=== PATIENT | male | born 1970 | race Caucasian/White ===

== ENCOUNTER 2017-06-17 16:54 | Emergency (ER) | payer OTHER ==
[2017-06-17 17:01] VITALS: BMI 26.4
[2017-06-17 17:05] VITALS: BP 143/87; PULSE 62; RESP 18; TEMP 97.6; O2SAT 100
[2017-06-17] MEDS ORDERED: Enoxaparin 40 mg Syringe SC STA (19:11)
[2017-06-17] MEDS ORDERED: Oxycodone/Acetaminophen 5/325 mg Tab PO STA (19:11)
[2017-06-17] MEDS ORDERED: Oxycodone/Acetaminophen 5/325 mg Tab ONE (19:24)
[2017-06-17] MEDS ORDERED: Enoxaparin 60 mg Syringe ONE (19:24)
--- NOTE | 2017-06-17 20:17 | C.PDOC ---
History Of Present Illness 46 year old male presents to the ED for evaluation of left leg pain which began 3 days ago. Patient denies trauma to the area, extremity numbness/weakness, or prior history of the same. Time Seen by Provider: 06/17/17 17:42 Chief Complaint (Nursing): Lower Extremity Problem/Injury History Per: Patient History/Exam Limitations: no limitations Onset/Duration Of Symptoms: Days (3) Current Symptoms Are (Timing): Still Present Additional History Per: Patient Past Medical History Reviewed: Historical Data, Nursing Documentation, Vital Signs Vital Signs: Last Vital Signs Temp 97.6 F 06/17/17 17:00 Pulse 62 06/17/17 17:00 Resp 18 06/17/17 17:00 BP 143/87 06/17/17 17:00 Pulse Ox 100 06/17/17 22:02 - Medical History PMH: Asthma, Fractures, Hypercholesterolemia Denies: Alzheimer's Disease, Anemia, Anxiety, Arthritis, Atrial Fibrillation , Bipolar Disorder, Cardia Arrhythmia, CHF, Crohn's Disease, Dementia, Depression, Diverticulitis, Gastritis, Gall Bladder Disease, HIV, HTN, Hyperthyroidism, Hypothyroidism, Kidney Stones, Migraine, Mitral Valve Prolapse , Multiple Sclerosis, Osteoporosis, Pancreatitis, Paranoia, Parkinson's Disease , Peripheral Edema, Pneumonia, Post Traumatic Stress Disorder, Pulmonary Embolism, Chronic Kidney Disease, Rheumatoid Arthritis, Schizophrenia, Seizures , Sickle Cell Disease, Sexually Transmitted Disease, Sleep Apnea, TIA Surgical History: No Surg Hx Denies: Pacemaker Family History: States: Unknown Family Hx - Social History Hx Tobacco Use: No Hx Alcohol Use: Yes Hx Substance Use: No - Immunization History Hx Tetanus Toxoid Vaccination: No Hx Influenza Vaccination: No Hx Pneumococcal Vaccination: No Review Of Systems Musculoskeletal: Positive for: Leg Pain (left) Neurological: Negative for: Weakness, Numbness Physical Exam - Physical Exam Appears: Non-toxic, No Acute Distress Skin: Normal Color, Warm, Dry, No Ecchymosis Back: Normal Inspection, No Vertebral Tenderness, No Decreased ROM, No Paraspinal Tenderness Extremity: Normal ROM, Tenderness (along posterior aspect of entire left lower extremity), Calf Tenderness (left, posterior ), Capillary Refill (less than 2 seconds ), No Swelling, Other (mild tenderness to left buttock ) Neurological/Psych: Oriented x3, Normal Speech, Normal Cognition ED Course And Treatment O2 Sat by Pulse Oximetry: 100 (on RA) Pulse Ox Interpretation: Normal Progress Note: Patient's symtoms are indicative of sciatica vs DVT. LS Spine AP /LAT ordered. Results show anterolisthesis of L5-S1 area. Percocet PO administered. D-dimer ordered and found to be elevated. Lovenox SC administered. On reassessment, patient is resting comfortably, showing no signs of distress and reports an improvement in his symptoms. Patient is stable for discharge and is advised to return to the ED tomorrow to undergo Venous Duplex Study for further evaluation. Reassessment Condition: Improved Disposition - Disposition Disposition: HOME/ ROUTINE Disposition Time: 20:14 Condition: STABLE Additional Instructions: Please return to ED tomorrow morning to do Left lower extremity duplex to rule out DVT. Follow up with PMD within 2-3 days. Return to Ed if feel worse. Prescriptions: Lidocaine 5% [Lidoderm] 1 patch TP DAILY #30 patch Ibuprofen [Motrin Tab] 600 mg PO Q8 #30 tab Gabapentin [Neurontin] 300 mg PO QPM #20 cap diaZEpam [Valium] 2 mg PO TID #15 tab Instructions: Sciatica Exercises Forms: [employer] (Liberian) Print Language: VIETNAMESE - Clinical Impression Clinical Impression: Leg pain - PA / BRUSH HAND / Resident Statement MD/DO has reviewed & agrees with the documentation as recorded. - Scribe Statement The provider has reviewed the documentation as recorded by the Scribe (Ann Olson) All medical record entries made by the Scribe were at my direction and personally dictated by me. I have reviewed the chart and agree that the record accurately reflects my personal performance of the history, physical exam, medical decision making, and the department course for this patient. I have also personally directed, reviewed, and agree with the discharge instructions and disposition.
--- NOTE | 2017-06-18 08:47 | RAD ---
PROCEDURE: Radiographs of the Lumbar Spine. HISTORY: Left leg pain COMPARISON: No prior. FINDINGS: BONES: There is pars interarticularis defect at L5 with grade 1 anterior listhesis of L5 on S1. There is mild levocurvature in the lumbar spine. Vertebral height is normal. Bone mineralization is normal. There is no acute fracture DISC SPACES: There is degenerative disc disease at L5-S1 with reduced disc height and mild facet arthropathy. The remaining disc heights are maintained. OTHER FINDINGS: Both sacroiliac joints are normal. There are no pathologic soft tissue calcifications. IMPRESSION: Pars interarticularis defect at L5 with grade 1 anterior listhesis of L5 on S1.
== END 2017-06-17 20:26 | disposition home or self-care (01) ==
LOC: C.ER 16:54
DX: M79.662 Pain in left lower leg (principal)
CPT/HCPCS: 72100; 85378; 96372; 99283; J1650

== ENCOUNTER 2017-06-18 13:05 | Emergency (ER) | payer OTHER ==
[2017-06-18 13:05] VITALS: BMI 26.4
--- NOTE | 2017-06-18 13:47 | C.PDOC ---
History Of Present Illness 46 y/o M p/w L leg pain. Was here yesterday, told to come back today when doppler available. Denies fever, chest pain, dyspnea, trauma. Time Seen by Provider: 06/18/17 13:32 Chief Complaint (Nursing): Lower Extremity Problem/Injury Past Medical History Vital Signs: Last Vital Signs Temp 97.6 F 06/18/17 13:07 Pulse 65 06/18/17 13:07 Resp 20 06/18/17 13:07 BP 151/97 H 06/18/17 13:07 Pulse Ox 97 06/18/17 13:48 - Medical History PMH: Asthma, Fractures, Hypercholesterolemia Denies: Alzheimer's Disease, Anemia, Anxiety, Arthritis, Atrial Fibrillation , Bipolar Disorder, Cardia Arrhythmia, CHF, Crohn's Disease, Dementia, Depression, Diverticulitis, Gastritis, Gall Bladder Disease, HIV, HTN, Hyperthyroidism, Hypothyroidism, Kidney Stones, Migraine, Mitral Valve Prolapse , Multiple Sclerosis, Osteoporosis, Pancreatitis, Paranoia, Parkinson's Disease , Peripheral Edema, Pneumonia, Post Traumatic Stress Disorder, Pulmonary Embolism, Chronic Kidney Disease, Rheumatoid Arthritis, Schizophrenia, Seizures , Sickle Cell Disease, Sexually Transmitted Disease, Sleep Apnea, TIA Surgical History: Denies: Pacemaker Family History: States: Unknown Family Hx - Social History Hx Tobacco Use: No Hx Alcohol Use: Yes Hx Substance Use: No - Immunization History Hx Tetanus Toxoid Vaccination: No Hx Influenza Vaccination: Yes (03/2017) Hx Pneumococcal Vaccination: Yes (2015) Review Of Systems Except As Marked, All Systems Reviewed And Found Negative. Constitutional: Negative for: Fever Cardiovascular: Negative for: Chest Pain, Palpitations Respiratory: Negative for: Shortness of Breath Physical Exam - Physical Exam Additional Physical Exam Comments: Gen: NAD Head: NC Resp: CTA b/l. No tachypnea. Extremities: FROM x 4. No edema. No tenderness Neuro: Alert, no focal deficit ED Course And Treatment O2 Sat by Pulse Oximetry: 97 Medical Decision Making Medical Decision Making: Doppler negative for DVT. Discharged home, f/u PMD, return to ED for worsening pain, swelling, dyspnea, or any other problem. Disposition - Disposition Referrals: [facility] at [facility] [Outside] Disposition: HOME/ ROUTINE Disposition Time: 15:34 Condition: STABLE Instructions: Sciatica Forms: [employer] (Sami) - Clinical Impression Clinical Impression: Leg pain
[2017-06-18 15:43] VITALS: BP 130/87; PULSE 64; RESP 18; TEMP 98; O2SAT 96
--- NOTE | 2017-06-21 12:46 | VASCLAB ---
PROCEDURE: Left Lower Extremity Venous Duplex Exam. HISTORY: L leg swelling PRIORS: None. TECHNIQUE: Left common femoral, femoral, popliteal and posterior tibial, peroneal and great saphenous veins were evaluated. Flow was assessed with color Doppler, compressibility, assessment of phasic flow and augmentation response. Report prepared by [facility] Clemons, RVT FINDINGS: LEFT: 1. Common Femoral Vein: 1.1. Compressibility - Fully compressible: Thrombus - None : Flow - Phasic: Augmentation -Normal: Reflux - None. 2. Femoral Vein: 2.1. Compressibility - Fully compressible: Thrombus - None: Flow - Phasic: Augmentation -Normal: Reflux - None. 3. Popliteal Vein: 3.1. Compressibility - Fully compressible: Thrombus - None: Flow - Phasic: Augmentation -Normal: Reflux - None. 4. Posterior Tibial Vein: 4.1. Compressibility - Fully compressible: Thrombus - None: Flow - Phasic: Augmentation -Normal: Reflux - None. 5. Peroneal Vein: 5.1. Compressibility - Fully compressible: Thrombus - None: Flow - Phasic: Augmentation -Normal: Reflux - None. 6. Great Saphenous Vein: 6.1. Compressibility - Fully compressible: Thrombus - None: Flow - Phasic: Augmentation - Normal: Reflux - None. OTHER FINDINGS: IMPRESSION: No evidence of deep or superficial vein thrombosis of the left lower extremity with excellent venous flow. Normal valve function noted of the left side. Normal venous flow noted in the right common femoral vein.
== END 2017-06-18 15:57 | disposition home or self-care (01) ==
LOC: C.ER 13:05
DX: M79.605 Pain in left leg (principal); E78.00 Pure hypercholesterolemia, unspecified

== ENCOUNTER 2018-05-05 10:02 | Outpatient (CLI) | payer OTHER | END 2018-05-05 10:03 | disposition home or self-care (01) | LOC: C.RT 10:02 | DX: J45.909 Unspecified asthma, uncomplicated (principal) ==

== ENCOUNTER 2018-06-06 11:37 | Emergency (ER) | payer OTHER ==
[2018-06-06 11:37] VITALS: BMI 30.4
[2018-06-06 12:03] VITALS: RESP 16; O2SAT 98
--- NOTE | 2018-06-06 12:08 | C.PDOC ---
History Of Present Illness 47 y/o male presents to the ED complaining of a dry cough, worsening for 1 week. Associated with a sore throat, subjective fever, and chills. Patient also reports having chest pain with coughing. No other complaints. Time Seen by Provider: 06/06/18 11:56 Chief Complaint (Nursing): Cough, Cold, Congestion History Per: Patient History/Exam Limitations: no limitations Onset/Duration Of Symptoms: Days Current Symptoms Are (Timing): Still Present Associated Symptoms: Fever, Chills, Cough Past Medical History Reviewed: Historical Data, Nursing Documentation, Vital Signs Vital Signs: Last Vital Signs Temp 98.1 F 06/06/18 11:50 Pulse 70 06/06/18 11:50 Resp 16 06/06/18 11:50 BP 118/73 06/06/18 11:50 Pulse Ox 98 06/06/18 11:50 - Medical History PMH: Asthma, Fractures, Hypercholesterolemia Denies: Alzheimer's Disease, Anemia, Anxiety, Arthritis, Atrial Fibrillation, Bipolar Disorder, Cardia Arrhythmia, CHF, Crohn's Disease, Dementia, Depression, Diverticulitis, Gastritis, Gall Bladder Disease, HIV, HTN, Hyperthyroidism, Hypothyroidism, Kidney Stones, Migraine, Mitral Valve Prolapse, Multiple Sclerosis, Osteoporosis, Pancreatitis, Paranoia, Parkinson's Disease, Peripheral Edema, Pneumonia, Post Traumatic Stress Disorder, Pulmonary Embolism, Chronic Kidney Disease, Rheumatoid Arthritis, Schizophrenia, Seizures, Sickle Cell Disease, Sexually Transmitted Disease, Sleep Apnea, TIA Surgical History: Denies: Pacemaker Family History: States: Unknown Family Hx - Social History Hx Tobacco Use: No Hx Alcohol Use: Yes Hx Substance Use: No - Immunization History Hx Tetanus Toxoid Vaccination: No Hx Influenza Vaccination: Yes (03/2017) Hx Pneumococcal Vaccination: Yes (2015) Review Of Systems Constitutional: Positive for: Fever (subjective), Chills ENT: Positive for: Nose Congestion, Throat Pain Cardiovascular: Positive for: Chest Pain (when coughing) Respiratory: Positive for: Cough. Negative for: Shortness of Breath Gastrointestinal: Negative for: Nausea, Vomiting, Diarrhea Skin: Negative for: Rash Neurological: Negative for: Weakness, Dizziness Physical Exam - Physical Exam Appears: Non-toxic, No Acute Distress Skin: Normal Color, Warm, Dry Head: Atraumatic, Normacephalic Eye(s): bilateral: Normal Inspection, PERRL, EOMI Ear(s): Bilateral: Normal (TMs clear) Oral Mucosa: Moist Throat: Erythema (Mild pharyngeal erythema), No Exudate Neck: Normal ROM Chest: Symmetrical Cardiovascular: Rhythm Regular, No Murmur Respiratory: Normal Breath Sounds, No Rales, No Rhonchi, No Wheezing Extremity: Bilateral: Atraumatic, Normal ROM Neurological/Psych: Oriented x3, Normal Speech ED Course And Treatment ECG: Interpreted By Me, Viewed By Me ECG Rhythm: Sinus Rhythm Interpretation Of ECG: No ST or T wave changes Rate From EC O2 Sat by Pulse Oximetry: 98 (RA) Pulse Ox Interpretation: Normal Medical Decision Making Medical Decision Making: Impression: Cough, Sore throat Initial Plan: - Chest x-ray - Flu swab - Rapid strep test strep flu cxr neg. pt lungs cta. will tx with tamiflu given high flu season. pt in nad iner. Disposition - Disposition Disposition: HOME/ ROUTINE Disposition Time: 13:00 Condition: STABLE Additional Instructions: return to er with worsening symptoms or concerns. Prescriptions: Oseltamivir Phosphate [Tamiflu] 75 mg PO BID #10 capsule Instructions: Viral Syndrome (DC) Forms: [employer] (Maori) - Clinical Impression Clinical Impression: Influenza-like illness - Scribe Statement The provider has reviewed the documentation as recorded by the Claribel Mccollum Provider Attestation: All medical record entries made by the Piliibtien were at my direction and personally dictated by me. I have reviewed the chart and agree that the record accurately reflects my personal performance of the history, physical exam, medical decision making, and the department course for this patient. I have also personally directed, reviewed, and agree with the discharge instructions and disposition.
--- NOTE | 2018-06-06 12:28 | RAD ---
HISTORY: cough COMPARISON: Chest x-ray performed 08/14/14 TECHNIQUE: Chest PA and lateral FINDINGS: LUNGS: No focal consolidation. Scattered right upper and mid lung probable calcified granulomas. Please note that chest x-ray has limited sensitivity for the detection of pulmonary masses. PLEURA: No significant pleural effusion identified. No definite pneumothorax . CARDIOVASCULAR: Heart size appears within normal limits. No atherosclerotic calcification present. OSSEOUS STRUCTURES: No acute osseous abnormality identified. VISUALIZED UPPER ABDOMEN: Unremarkable. OTHER FINDINGS: None. IMPRESSION: No focal consolidation.
[2018-06-06 13:24] VITALS: BP 112/77; PULSE 60; TEMP 97.8
[2018-06-06 14:05] LABS: INFLUENZA A B NEGATIVE FOR FLU A/B (NEGATIVE)
--- NOTE | 2018-06-07 12:38 | CARD ---
APPROVED REPORT Date of service: 06/06/2018 EKG Measurement Heart [id number] <Conclusion> Normal sinus rhythm Normal ECG
== END 2018-06-06 14:14 | disposition home or self-care (01) ==
LOC: C.ER 11:37
DX: J11.1 Influenza due to unidentified influenza virus with other respiratory manifestations (principal); J45.909 Unspecified asthma, uncomplicated; E78.00 Pure hypercholesterolemia, unspecified; Z87.891 Personal history of nicotine dependence